=== PATIENT | female | born 1960 | race African-American/Black ===

== ENCOUNTER 2016-07-01 14:27 | Emergency (ER) | payer OTHER ==
[2016-07-01 14:52] VITALS: BMI 53.2
[2016-07-01] MEDS ORDERED: FAMOTIDINE 20 MG/50 ML IVPB 50 ML IVPB ONE ×2 (15:09→15:19)
[2016-07-01] MEDS ORDERED: ALBUTEROL SO4 2.5/IPRATROPIUM 0.5 INH SOL 3 ML VIAL.NEB. NEB ONE (15:10)
[2016-07-01] MEDS ORDERED: ALBUTEROL SO4 0.083% IH SOL 2.5 MG/3 ML VIAL.NEB. NEB ONE (15:18)
--- NOTE | 2016-07-01 15:35 | PDOC ---
History of Present Illness - General Stated Complaint: Shortness of Breath Time Seen by Provider: 07/01/16 14:42 History Source: Patient, Family Exam Limitations: No Limitations - History of Present Illness Initial Comments: 07/01/16 15:31 Patient has variable history with variable providers. Patient is a 55 year old female with a PMHx of DM, HTN, HLD, COPD, Sleep apnea and depression who presents to the ED with multiple unspecific complaints of unclear duration. Patient states to me that she has stabbing abdominal pain that began this morning associated with lower back pain, coughing with dark phlegm, one episode of nonbloody diarrhea this morning, shortness of breath, eye pain, and headache. Patient reports her abdominal pain occurs every 10 minutes and lasts for one hour. When the abdominal pain occurs she reports she begins to have shortness of breath and back pain. She denies fever, chills, vomiting, constipation She denies loss of consciousness and lightheadedness PMHx: DM, HTN, HLD, COPD, Sleep apnea and depression PSHx: None MEDS: Refer to ambulatory Allergies: Aspirin and eggs Social: Denies smoking, drugs, or alcohol PCP: Dr. Hernández 07/01/16 16:38 Past History - Past Medical History Allergies/Adverse Reactions: Allergies Allergy/AdvReac Type Severity Reaction Status Date / Time aspirin Allergy Unknown Verified 07/01/16 14:39 EGGS Allergy Unknown Uncoded 07/01/16 14:39 anesthesia reaction AdvReac Mild Itching Uncoded 07/01/16 14:39 Home Medications: Ambulatory Orders Albuterol Sulfate Inhaler - [Ventolin HFA Inhaler -] 1 - 2 inh IH QID #1 inh 12/02 Glipizide Xl [Glucotrol Xl -] 5 mg PO DAILY 12/04/14 Insulin Glargine,Hum.rec.anlog [Lantus Solostar PEN -] 50 units SQ ASDIR PRN 09/03 Acetaminophen [Tylenol .Regular Strength -] 325 mg PO Q6H PRN #0 tablet Albuterol 2.5/Ipratropium 0.5 [Duoneb -] 1 amp NEB QIDR amp 11/27/15 Dexamethasone [Decadron -] 4 mg PO TID #20 tablet 11/27/15 Hydrocodone/Acetaminophen [Hydrocodon-Acetaminoph 7.5-325] 1 tab PO TID PRN #21 tablet MDD 3 11/27/15 Levofloxacin [Levaquin -] 500 mg PO DAILY@0600 #10 tablet 11/27/15 Metformin HCl [Glucophage -] 1,000 mg PO BID #60 tablet 11/27/15 Acetaminophen/Caffeine/Butalb [Fioricet -] 1 tab PO Q6H PRN 05/25/16 Hydrocodone/Acetaminophen [Maybee 5-325 Tablet] 0 each PO ASDIR 05/25/16 Promethazine HCl/Codeine [Prometh-Codein 6.25-10 mg/5 ml] 5 ml PO Q6H PRN Triamcinolone 0.025% Cream [Aristocort] 1 applic TP ASDIR 05/25/16 Unobtainable 05/25/16 Losartan Potassium 50 mg PO DAILY #30 tablet 06/01/16 Prednisone 10 mg PO DAILY #10 tablet 06/01/16 Anemia: No Asthma: Yes Cancer: No Cardiac Disorders: Yes CVA: Yes COPD: Yes (CHRONIC BRONCHITIS) CHF: Yes Dementia: No Diabetes: Yes GI Disorders: No Disorders: No HTN: Yes Hypercholesterolemia: No Liver Disease: No Suicide Attempt (Hx): No Seizures: Yes Thyroid Disease: No - Psycho/Social/Smoking Cessation Hx Anxiety: No Suicidal Ideation: No Smoking Status: Yes Smoking History: Never smoked Have you smoked in the past 12 months: No Number of Cigarettes Smoked Daily: 0 Hx Alcohol Use: No Drug/Substance Use Hx: No Substance Use Type: Prescribed Hx Substance Use Treatment: No Review of Systems - Review of Systems Constitutional: Yes: Weakness. No: Chills, Diaphoresis, Fever, Night Sweats HEENTM: Yes: Eye Pain, Nose Congestion. No: Throat Pain, Throat Swelling Respiratory: Yes: Cough, Shortness of Breath, SOB with Exertion, SOB at Rest, Wheezing, Productive cough Cardiac (ROS): Yes: Chest Pain, Lightheadedness, Palpitations, Chest Tightness ABD/GI: Yes: Diarrhea, Nausea, Indigestion, Abdominal cramping : Yes: Burning, Dysuria, Discharge, Frequency, Flank Pain. No: Hematuria, Incontinence Musculoskeletal: Yes: Back Pain, Neck Pain Integumentary: No: Bruising, Dryness, Erythema Neurological: Yes: Headache, Dizziness. No: Numbness, Paresthesia, Seizure, Tingling, Tremors, Unsteady Gait Psychiatric: Yes: Depression Endocrine: No: Excessive Sweating, Intolerance to Cold, Intolerance to Heat Hematologic/Lymphatic: No: Anemia, Blood Clots *Physical Exam - Vital Signs Last Vital Signs Temp Pulse Resp BP Pulse Ox 97.3 F L 98 H 20 101/75 87 L 07/01/16 14:36 07/01/16 14:36 07/01/16 14:36 07/01/16 14:36 07/01/16 14:36 - Physical Exam Comments: 07/01/16 16:17 General Appearance: Yes: Other (Awake, Alert, oriented and in mild respiratory distress. ) HEENT: positive: EOMI, MONICA, TMs Normal, Pharynx Normal, Nasal Congestion. negative: Tonsillar Exudate, Tonsillar Erythema, Rhinorrhea, Sinus Tenderness, TM Bulging, TM Erythema Neck: positive: Trachea midline. negative: Rigid, Carotid bruit, Lymphadenopathy (R), Lymphadenopathy (L) Respiratory/Chest: positive: Respiratory Distress (mild), Labored Respiration, Decreased Breath Sounds, Wheezing. negative: Rhonchi Cardiovascular: positive: Regular Rhythm, Regular Rate, S1, S2. negative: Edema , JVD Gastrointestinal/Abdominal: positive: Tenderness (upon palpation of mid epigastric region, left uppper and left lower quadrant ) Musculoskeletal: positive: CVA Tenderness, Decreased Range of Motion Extremity: positive: Normal Capillary Refill, Normal Inspection Integumentary: positive: Normal Color, Dry, Warm Neurologic: positive: data support specialist II-XII NML intact, Fully Oriented, Alert, Normal Mood/ Affect, Normal Response, Motor Strength / ED Treatment Course - LABORATORY CBC & Chemistry Diagram: 07/01/16 15:29 07/01/16 15:29 - RADIOLOGY Radiology Studies Ordered: Category Date Time Status CHEST X-RAY PORTABLE* [RAD] Stat Radiology 07/01/16 15:08 Ordered - Medications Given in the ED: ED Medications Discontinued Medications Generic Name Dose Route Start Last Admin Trade Name Freq PRN Reason Stop Dose Admin Albuterol/Ipratropium 1 amp 07/01/16 15:10 07/01/16 15:19 Duoneb - NEB 07/01/16 15:11 1 amp ONCE ONE Administration Medical Decision Making - Medical Decision Making 07/01/16 15:45 Patient is a 55 year old female with a PMHx of DM, HTN, HLD, COPD, Sleep apnea and depression who presents to the ED with multiple unspecific complains of unclear duration. Patient reports abdominal associated with nausea, one episode of nonbloody diarrhea, shortness of breath, cough with dark sputum, dysuria, frequency, and back pain that began acutely yesterday but has been chronic for years. Differential diagnosis include but not limited to ACS, pneumonia, PE, Asthma exacerbation, COPD exacerbation, gastroenteritis, UTI, pyelonephritis. ED Course and Treatment -CBC -CMP -Cardiac profile -Lipase -Urinalysis -EKG -Chest x-ray -Influenza swab -1 DuoNeb -Famotidine 20mg IVPB 07/01/16 16:58 -DuoNeb given -Patient re-evaluated and is sleeping in bed comfortably with no audible wheezing -Labs pending 07/01/16 17:09 -CMP wnl with CBC pending -U/A pending -Patient ambulating without difficulty and is in no acute respiratory distress 07/01/16 18:03 -U/A negative -On repeat physical exam patient is saturating 100% on room air and complains of no abdominal pain or diarrhea. -Patient may be discharged as she is currently not experiencing any pain or shortness of breath. She was instructed to follow up with her PCP within a week. *DC/Admit/Observation/Transfer Diagnosis at time of Disposition: Respiratory distress, Epigastric abdominal pain - Discharge Dispostion Disposition: HOME Condition at time of disposition: Stable Admit: No - Patient Instructions Additional Instructions: -Please follow up with your Primary care physician within one week -Continue taking home medications -If you experience severe shortness of breath, fever, or loss of consciousness, return to the ED
--- NOTE | 2016-07-01 16:04 | PDOC ---
Attending Attestation - Resident Resident Name: Meliza Ramos - ED Attending Attestation I have performed the following: I have examined & evaluated the patient, The case was reviewed & discussed with the resident, I agree w/resident's findings & plan, Exceptions are as noted - HPI HPI: 07/01/16 15:59 55-year-old female with multiple medical problems presents with multiple nonspecific complaints. On my history, her first complaints revolved around burning with urination and wants purulence urine, which then led to some lightheadedness and reflux, which then caused a cough, which then exacerbated her chronic back pain. - Physicial Exam PE: 07/01/16 16:04 Vital signs as noted. Morbidly obese Exam as noted with nonspecific epigastric discomfort, otherwise neurologically intact - Medical Decision Making 07/01/16 16:05 Patient seen and evaluated with the resident. I agree with the overall evaluation, assessment, and management with the following summary of visit: 55-year-old female with multiple abdominal medical issues presents with multiple nonspecific complaints. Differential is broad, she is otherwise in no acute distress. Will check general labs, rule out acute cardiopulmonary or GI or process. Chest x-ray Dispo accordingly
[2016-07-01 16:08] LABS: ALBUMIN 3.5 g/dl (3.4-5.0); ANION GAP 6 (8-16); CALCIUM 8.8 mg/dL (8.5-10.1); CO2 36 mmol/L (21-32); CREATININE 0.7 mg/dL (0.55-1.02); GLUCOSE,RANDOM 138 mg/dL (74-106); SGPT/ALT 19 U/L (12-78)
[2016-07-01 16:12] LABS: ALK PHOS 103 U/L (45-117); BILIRUBIN,TOTAL 0.4 mg/dL (0.2-1.0); TOT PROT 7.3 g/dl (6.4-8.2); TROPONIN I < 0.02 ng/ml (0.00-0.05)
[2016-07-01 17:35] LABS: URINE APPEARANCE CLEAR; URINE BILIRUBIN NEGATIVE (NEGATIVE); URINE BLOOD NEGATIVE (NEGATIVE); URINE COLOR LT. YELLOW; URINE GLUCOSE (UA) NEGATIVE (NEGATIVE); URINE KETONE NEGATIVE (NEGATIVE); URINE LEUK ESTERASE NEGATIVE (NEGATIVE); URINE NITRITE NEGATIVE (NEGATIVE); URINE PROTEIN NEGATIVE (NEGATIVE); URINE UROBILINOGEN 0.2 E.U/dl E.U./dl (0.2-1.0)
[2016-07-01 18:36] VITALS: BP 105/70; PULSE 86; TEMP 97.6
[2016-07-01 18:52] LABS: MCH 25.5 pg (25.7-33.7); MCHC 30.5 g/dl (32.0-36.0); MEAN CELL VOLUME 83.4 fl (80-96); RDW 16.7 % (11.6-15.6); WHITE BLOOD COUNT 9.7 K/mm3 (4.0-10.0)
[2016-07-01 18:53] LABS: BASOPHIL 0.4 % (0-2.0); MEAN PLT VOLUME 10.2 fl (7.5-11.1); NEUTROPHILS 69.8 % (42.8-82.8); PLATELET COUNT 253 K/MM3 (134-434)
== END 2016-07-01 18:57 | disposition home or self-care (01) ==
LOC: JER 14:27
PROC: 3E033GC Introduction of Other Therapeutic Substance into Peripheral Vein, Percutaneous Approach (ICD-10-PCS; principal; 2016-07-01)
PROC: 3E0337Z Introduction of Electrolytic and Water Balance Substance into Peripheral Vein, Percutaneous Approach (ICD-10-PCS; 2016-07-01)
DX: J80 Acute respiratory distress syndrome (principal); R10.13 Epigastric pain; J45.909 Unspecified asthma, uncomplicated; I51.9 Heart disease, unspecified; E11.9 Type 2 diabetes mellitus without complications; I10 Essential (primary) hypertension; J42 Unspecified chronic bronchitis; Z86.73 Personal history of transient ischemic attack (TIA), and cerebral infarction without residual deficits
CPT/HCPCS: 36415; 71010-TC; 80053; 81003; 82550; 83690; 84484; 85025; 87804; 94640; 96365; 99282-25